=== PATIENT | female | born 1985 | race American Indian/Alaskan Native ===

== ENCOUNTER 2017-05-31 16:26 | Emergency (ER) | payer SELFPAY ==
--- NOTE | 2017-05-31 19:51 | Emergency Department Report ---
Blank Doc - Documentation Documentation: Patient is a 32-year-old female who presents to the emergency room with complaints of lightheadedness, dizziness and nausea and vomiting. Patient states she ran out of her blood pressure medication year ago and feels as if her blood pressure is high. Patient denies fever and chills. Patient denies chest pain shortness of breath. Neuro exam is normal. CV exam is normal. Lungs are clear to auscultation. Pupils equal reactive. Will order test and placed in fast track
[2017-05-31 20:05] LABS: Hematocrit 42.6 % (30.3-42.9); Hemoglobin 14.2 gm/dl (10.1-14.3); Mean Corpuscular HGB Conc 33 % (30-34); Mean Corpuscular Hemoglobin 30 pg (28-32); Mean Corpuscular Volume 90 fl (79-97); Platelet Count 207 K/mm3 (140-440); Red Blood Count 4.72 M/mm3 (3.65-5.03); Red Cell Distribution Width 13.6 % (13.2-15.2)
[2017-05-31 20:18] LABS: Alanine Aminotransferase 13 units/L (7-56); BUN/Creatinine Ratio 10; Blood Urea Nitrogen 6 mg/dL (7-17); Calcium 8.9 mg/dL (8.4-10.2); Hemolysis Index 14
[2017-05-31 23:23] LABS: Bilirubin,Urine NEG (Negative); Blood,Urine NEG (Negative); Color,Urine Yellow (Yellow); Protein,Urine <15 mg/dL mg/dL (Negative); Urobilinogen,Urine < 2.0 mg/dL (<2.0)
[2017-05-31 23:25] LABS: HCG Qualitative,Urine Negative (Negative)
--- NOTE | 2017-06-01 00:17 | Emergency Department Report ---
ED General Adult HPI - General Chief complaint: Dizziness Stated complaint: LIGHTHEADED Time Seen by Provider: 05/31/17 21:33 Source: patient Mode of arrival: Ambulatory Limitations: No Limitations - History of Present Illness Initial comments: 32-year-old female past medical history hypertension presents with complaint of slight episode of lightheadedness this morning, states she felt slightly weak with it. States she felt this way intermittently for a few seconds at a time for a few hours. Denies any aura denies any associated tinnitus or nausea chest pain or diaphoresis. Denies any recent head trauma .Denies any current headache chest pain shortness of breath palpitations nausea or vomiting. Patient is awake alert and oriented 3. Fully lucid and ambulatory without assistance. States she was concerned because she has not taken her blood pressure medicine which was amlodipine in over 2 years. Has not followed up with the primary doctor in 2 years. Patient is accompanied by family member at bedside. Denies any current symptoms at time of my interview. Patient was screened by Dr. Alatorre earlier today. Patient states she smokes cigarettes and occasionally marijuana but denies any other drug use. Occasional alcohol use. States she does hold her urine for prolonged periods of time at work. Denies any dysuria or increased urinary frequency at this time denies hematuria , lmp 05/06/17 -: This morning Associated Symptoms: other (lightheadedness) - Related Data Previous Rx's Medication Instructions Recorded Last Taken Type Sulfamethoxazole/Trimethoprim 1 each PO BID #6 tablet 06/01/17 Unknown Rx [Bactrim Ds Tablet] amLODIPine [Norvasc] 5 mg PO DAILY #30 tab 06/01/17 Unknown Rx Allergies Allergy/AdvReac Type Severity Reaction Status Date / Time No Known Allergies Allergy Unverified 05/31/17 16:35 ED Review of Systems ROS: Stated complaint: LIGHTHEADED Other details as noted in HPI Constitutional: denies: chills, fever Eyes: denies: eye pain, eye discharge, vision change ENT: denies: ear pain, throat pain Respiratory: denies: cough, shortness of breath, wheezing Cardiovascular: denies: chest pain, palpitations Endocrine: no symptoms reported Gastrointestinal: denies: abdominal pain, nausea, diarrhea Genitourinary: denies: urgency, dysuria, discharge Musculoskeletal: denies: back pain, joint swelling, arthralgia Skin: denies: rash, lesions Neurological: denies: headache, weakness, paresthesias Psychiatric: denies: anxiety, depression Hematological/Lymphatic: denies: easy bleeding, easy bruising ED Past Medical Hx - Past Medical History Hx Hypertension: Yes - Surgical History Additional Surgical History: tubal ligation - Social History Smoking Status: Current Every Day Smoker Substance Use Type: Alcohol, Marijuana - Medications Home Medications: Home Medications Medication Instructions Recorded Confirmed Last Taken Type Sulfamethoxazole/Trimethoprim 1 each PO BID #6 tablet 06/01/17 Unknown Rx [Bactrim Ds Tablet] amLODIPine [Norvasc] 5 mg PO DAILY #30 tab 06/01/17 Unknown Rx ED Physical Exam - General Limitations: No Limitations General appearance: alert, in no apparent distress - Head Head exam: Present: atraumatic, normocephalic - Eye Eye exam: Present: normal appearance, PERRL, EOMI Pupils: Present: normal accommodation - ENT ENT exam: Present: mucous membranes moist - Neck Neck exam: Present: normal inspection, full ROM - Respiratory Respiratory exam: Present: normal lung sounds bilaterally. Absent: respiratory distress - Cardiovascular Cardiovascular Exam: Present: regular rate, normal rhythm. Absent: systolic murmur, diastolic murmur, rubs, gallop - GI/Abdominal GI/Abdominal exam: Present: soft (abdomen soft nontender nondistended 4 quadrants), normal bowel sounds - Extremities Exam Extremities exam: Present: normal inspection - Back Exam Back exam: Present: normal inspection - Neurological Exam Neurological exam: Present: alert, oriented X3, CN II-XII intact, normal gait - Expanded Neurological Exam Expanded Patient oriented to: Present: person, place, time Cranial nerves: EOM's Intact: Normal, Facial Sensation: Normal Cerebellar function: Finger to Nose: Normal, Heel to Mahajan: Normal, Romberg: Normal Sensory exam: Upper Extremity Light Touch: Normal, Lower Extremity Light Touch: Normal Motor strength exam: RUE: 5, LUE: 5, RLE: 5, LLE: 5 Best Eye Response ([place]): (4) open spontaneously Best Motor Response ([place]): (6) obeys commands Best Verbal Response ([place]): (5) oriented [place] Total: 15 - Psychiatric Psychiatric exam: Present: normal affect, normal mood - Skin Skin exam: Present: warm, dry, intact, normal color. Absent: rash ED Course Vital Signs 05/31/17 16:35 Temperature 98.7 F Pulse Rate 69 Respiratory 18 Rate Blood Pressure 155/101 O2 Sat by Pulse 100 Oximetry ED Medical Decision Making - Lab Data Result diagrams: 05/31/17 19:55 05/31/17 19:55 - Medical Decision Making A/P: Possible asymptomatic bacteriuria, uncontrolled hypertension 1-BMP unremarkable, CBC unremarkable, LFTs unremarkable, EKG sinus rhythm at 55 bpm. I discussed case with Dr. Alatorre as per Dr. Alatorre patient does not need head CT as she does not have any neurological deficits at this time.Cranial nerves 2, 3, 4, 5, 6, 7, 8,10, 11, 12 intact on clinical exam, patient is fully lucid awake alert and oriented 3 conversant. Denies any upper or lower extremity paresthesias and has 5/5 strength in bilateral upper and lower extremities on clinical exam. 2-UA shows moderate leukocyte esterase, will treat empirically as this can cause sensation of weakness especially in female patient's 3-follow-up with primary care. I will refill patient's amlodipine was started low dose 5 mg until patient can follow up with primary care doctor. I educated her on the subject of hypertension 4-vital signs stable for discharge Critical care attestation.: If time is entered above; I have spent that time in minutes in the direct care of this critically ill patient, excluding procedure time. ED Disposition Clinical Impression: Asymptomatic bacteriuria, Light-headed feeling Hypertension Qualifiers: Hypertension type: unspecified Qualified Code(s): I10 - Essential (primary) hypertension Disposition: DC-01 TO HOME OR SELFCARE Is pt being admited?: No Does the pt Need Aspirin: No Condition: Stable Instructions: Hypertension (ED), Urinary Tract Infection in Women (ED) Prescriptions: amLODIPine [Norvasc] 5 mg PO DAILY #30 tab Sulfamethoxazole/Trimethoprim [Bactrim Ds Tablet] 1 each PO BID #6 tablet Referrals: [facility] [Outside] - 3-5 Days [facility] [Outside] - 3-5 Days JAKE PETERS MD [Staff Physician] - 3-5 Days Forms: Accompanied Note, Work/School Release Form(ED) Time of Disposition: 00:19
[2017-06-01 00:43] VITALS: BP 167/80
== END 2017-05-31 23:49 | disposition home or self-care (01) ==
LOC: ED 16:26
DX: I10 Essential (primary) hypertension (principal); R82.71 Bacteriuria; F17.200 Nicotine dependence, unspecified, uncomplicated; F12.10 Cannabis abuse, uncomplicated; Z98.51 Tubal ligation status
CPT/HCPCS: 36415; 80053; 81001; 81025; 85027; 87086; 93005; 93010; 99283